=== PATIENT | female | born 1960 | race Caucasian/White ===

== ENCOUNTER 2021-10-03 09:30 | Emergency (ER) | payer MEDICAID ==
[~2021-10-03] VITALS: Ht 160 cm; Wt 86.2 kg
--- NOTE | 2021-10-03 09:50 | NUR ---
RT NOTE PT PLACED ON 6L NC. PT SATURATION IS 94-97%. MD LEAHY NOTIFIED AND AWARE.
[2021-10-03 10:12] LABS: BASOPHILS # (AUTO) 0.1 K/uL (0.0-0.2); BASOPHILS % (AUTO) 0.8 % (0.0-2.0); HEMATOCRIT 40 % (33-45); HEMOGLOBIN 12.6 g/dL (11.5-14.8); LYMPHOCYTES # (AUTO) 1.3 K/uL (0.8-4.8); LYMPHOCYTES % (AUTO) 11.7 % (20.0-44.0); MEAN CORPUSCULAR HGB CONC 31 g/dl (31.0-36.0); MEAN CORPUSCULAR VOLUME 81 fL (82-100); MONOCYTES # (AUTO) 0.4 K/uL (0.1-1.30); MONOCYTES % (AUTO) 3.9 % (2.0-12.0); NEUTROPHILS % (AUTO) 82.6 % (43.0-81.0); PLATELET COUNT (AUTO) 456 K/uL (150-450); RED BLOOD CELL COUNT(AUTO) 4.99 MIL/uL (4.0-5.2); WHITE BLOOD COUNT (AUTO) 10.8 K/uL (4.3-11.0)
[2021-10-03 10:23] LABS: CALCIUM, SERUM 9.2 mg/dL (8.5-10.1); CREATININE 0.8 mg/dL (0.6-1.3); POTASSIUM 4.6 mmol/L (3.5-5.1)
[2021-10-03 10:26] LABS: ABG BASE EXCESS 3.8 mmol/L; ABG PCO2 41.8 mmHg (35.0-45.0); ABG PH 7.447 (7.350-7.450); ABG PO2 68.9 mmHg (75.0-100.0); COHb 0.9 % (0.5-1.5); MetHb 0.3 % (0.0-1.5); O2Hb 92.8 % (94.0-97.0); SITE, ABG Right Radial; VENT MODE, BG 6L NC
--- NOTE | 2021-10-03 10:26 | NUR ---
RT NOTE ABG RESULTS NOT CROSSING OVER TO [facility]. ABG RESULTS SHOWN TO MD LEAHY AND RESULTS PLACED IN PT CHART.
[2021-10-03] MEDS ORDERED: FUROSEMIDE 40 MG/4 ML VIAL IV ONE (10:30)
--- NOTE | 2021-10-03 10:30 | NUR ---
RT NOTE ABG RESULTS ARE NOW SHOWING IN [facility]
[2021-10-03 10:33] LABS: C-REACTIVE PROTEIN 4.2 mg/dL (0.0-0.9)
[2021-10-03 10:37] LABS: ALBUMIN 3.8 g/dL (3.4-5.0); BILIRUBIN,TOTAL 0.5 mg/dL (0.2-1.0); TOTAL PROTEIN, SERUM 8.1 g/dL (6.4-8.2)
[2021-10-03] MEDS ORDERED: FUROSEMIDE 40 MG/4 ML VIAL ONE (10:48)
[2021-10-03] MEDS ORDERED: AMLO-213 PO (10:50)
[2021-10-03] MEDS ORDERED: METF-442 PO (10:50)
[2021-10-03] MEDS ORDERED: BISO5TAB20 PO (10:50)
[2021-10-03] MEDS ORDERED: ASPI-1169 PO (10:50)
--- NOTE | 2021-10-03 11:10 | NUR ---
MOVE SHEET SUBMITTED.
[2021-10-03 12:04] LABS: BILIRUBIN,URINE NEGATIVE (NEGATIVE); COLOR,URINE YELLOW (YELLOW); LEUKOCYTE ESTERASE ,URINE NEGATIVE (NEGATIVE); NITRITE, URINE POSITIVE (NEGATIVE); PROTEIN,URINE NEGATIVE (NEGATIVE); UGLUCOSE NEGATIVE (NEGATIVE); UROBILINOGEN,URINE 0.2 EU/dL (0.2)
[2021-10-03 12:14] LABS: D-DIMER 2.01 mg/L(FEU (0.17-0.50)
--- NOTE | 2021-10-03 12:33 | NUR ---
[facility]IL [facility] [phone] GOING TO [facility].
--- NOTE | 2021-10-03 13:09 | NUR ---
Patient picked up by [facility] for CT pulmonary angiogram accompanied by son in no distress.
[2021-10-03] MEDS ORDERED: IOHEXOL-350 100 ML VIAL IV ONE (13:11)
[2021-10-03] MEDS ORDERED: CT SWABBABLE VALVE TRANS SET 1 EA INFUS.SET MC ONE (13:12)
[2021-10-03] MEDS ORDERED: IV NS 0.9% 250 ML IV ONE (13:12)
--- NOTE | 2021-10-03 13:24 | NUR ---
patient came back from ct.
[2021-10-03 13:34] LABS: RBC,URINE 0-2 /HPF (0-2); WBC,URINE 0-2 /HPF (0-3)
[2021-10-03 13:35] LABS: BACTERIA,URINE Moderate /HPF (None Seen); CALCIUM CARBONATE CRYSTALS,UR None Seen /HPF (None Seen); CALCIUM OXALATE CRYSTALS,UR None Seen /HPF (None Seen); CALCIUM PHOSPHATE CRYSTALS,UR None Seen /HPF (None Seen); COARSE GRANULAR CASTS,URINE None Seen /LPF (None Seen); CYSTINE CRYSTALS,URINE None Seen /HPF (None Seen); FATTY CASTS,URINE None Seen /LPF (None Seen); FINE GRANULAR CASTS,URINE None Seen /LPF (None Seen); HYALINE CASTS, URINE None Seen /LPF (None Seen); MUCUS,URINE None Seen /LPF (None Seen); OTHER CRYSTALS,URINE None Seen /HPF (None Seen); RED BLOOD CELL CASTS,URINE None Seen /LPF (None Seen); SPERM,URINE None Seen /HPF (None Seen); SQUAMOUS EPITHELIAL CELL,UR Rare /HPF (None Seen); TRICHOMONAS,URINE None Seen /HPF (None Seen); TRIPLE PHOSPHATE CRYSTAL,UR None Seen /HPF (None Seen); TYROSINE CRYSTAL,URINE None seen /HPF (None Seen); URIC ACID CRYSTALS,URINE None Seen /HPF (None Seen); URINE AMORPHOUS PHOSPHATES None Seen /HPF (None Seen); URINE AMORPHOUS URATE None Seen /HPF (None Seen); WAXY CASTS,URINE None Seen /LPF (None Seen); YEAST,URINE None Seen /HPF (None Seen)
--- NOTE | 2021-10-03 13:39 | NUR ---
DR. TRENT SPEAKING WITH DR. LEAHY.
--- NOTE | 2021-10-03 15:57 | NUR ---
COVID ANTIGEN RESULT FAXED TO [facility] AT [phone] FAX CONFIRMATION RECEIVED
--- NOTE | 2021-10-03 19:46 | NUR ---
PER [facility] [employer] PT TRANSFERRING TO [facility] ROOM 214-A CALL FOR REPORT [phone] AUTH [id number]
--- NOTE | 2021-10-03 20:10 | NUR ---
PATIENT REFUSED TO TRANSFER TO [facility]. SHE WOULD RATHER GO AMA INSTEAD OF TRANSFERRING TO [facility]. SHE SAID SHE [place] [address] AND SHE DOESN'T LIKE IT. IT WAS EXPLAINED TO PATIENT THE RISK AND THE REASON WHY SHE NEEDS TO BE ADMITTED BUT FAMILY REFUSED. DR. RAMIREZ MADE AWARE.
--- NOTE | 2021-10-03 20:15 | NUR ---
IV CANNULA REMOVED. PATIENT HAS HER OWN PORTABLE OXYGEN AND THEY WILL USE IT AT HOME
--- NOTE | 2021-10-03 20:32 | NUR ---
Patient does not wish to proceed with medical care recommended by Dr. EASTMAN ). Patient given information related to possible complications, up to and including , which could occur as a result of leaving the hospital at this time. Patient verbalizes understanding of risks involved due to leaving against medical advice. Patient has signed AMA form.
[2021-10-03 20:35] VITALS: BP 145/79
--- NOTE | 2021-10-03 21:04 | NUR ---
CERTIFIED MEDICATION AIDE AT [facility] MADE AWARE OF AMA STATUS
== END 2021-10-03 20:36 | disposition left against medical advice (07) ==
LOC: ER 09:33
DX: R06.03 Acute respiratory distress (principal); I11.0 Hypertensive heart disease with heart failure; I50.9 Heart failure, unspecified; D75.839 Thrombocytosis, unspecified; R09.02 Hypoxemia; E66.01 Morbid (severe) obesity due to excess calories; Z68.33 Body mass index [BMI] 33.0-33.9, adult; Z20.822 Contact with and (suspected) exposure to COVID-19; E11.9 Type 2 diabetes mellitus without complications; Z79.84 Long term (current) use of oral hypoglycemic drugs; Z79.899 Other long term (current) drug therapy; Z79.82 Long term (current) use of aspirin; J98.11 Atelectasis; R79.1 Abnormal coagulation profile; Z53.29 Procedure and treatment not carried out because of patient's decision for other reasons
CPT/HCPCS: 36415; 36600 ×2; 71045; 71275; 80053; 81001; 82550; 82803; 83880; 84145; 84484; 85025; 85378; 85730; 86140; 87040 ×2; 87426; 87804; 93005; 96374; 99285; C9803 ×2; J1940; J7050; Q9967; U0003